=== PATIENT | male | born 1980 | race Caucasian/White ===

== ENCOUNTER 2020-10-18 10:30 | Outpatient (REF) | payer OTHER, SELFPAY ==
[2020-10-18 11:39] LABS: Cholesterol 228 mg/dL; HDL Cholesterol 59 mg/dL; LDL Cholesterol Calculated 146 mg/dl; Triglycerides 117 mg/dL
== END 2020-10-18 10:31 | disposition home or self-care (01) ==
LOC: HO.HMGCLDS 10:30
PROVIDERS: PCP Nurse Practitioner Family; Visit Provider Nurse Practitioner Family
DX: E78.5 Hyperlipidemia, unspecified (principal)
CPT/HCPCS: 36415; 80061

== ENCOUNTER 2020-11-29 14:03 | Outpatient (REF) | payer OTHER, SELFPAY ==
--- NOTE | ~2020-11-29 | US_ITS ---
EXAMINATION: US VENOUS ULTRASOUND WITH DOPPLER LOWER EXTREMITY, RIGHT CLINICAL INFORMATION: Localized edema. COMPARISON: None TECHNIQUE: Ultrasound of the deep veins is performed from the hip to the calf with compression sonography and color and pulse Doppler assessment. Spectral analysis with color-flow imaging is performed. FINDINGS: There is normal venous compression and respiratory variation and augmented flow. The visualized common femoral vein, superficial femoral vein, profunda femoral vein, popliteal vein, and the trifurcation region shows no evidence of deep venous thrombosis. There is no significant popliteal fossa cyst. If the patient's symptoms persist, followup ultrasound in 5 days 7 days might be of value to exclude proximal propagation from a non-visualized calf vein. US/US venous duplex LE RT IMPRESSION: No DVT demonstrated in the right lower extremity.
== END 2020-11-29 14:04 | disposition home or self-care (01) ==
LOC: HO.HMGCX 14:03
PROVIDERS: PCP Nurse Practitioner Family; Visit Provider Hospitalist
DX: R60.0 Localized edema (principal)
CPT/HCPCS: 93971

== ENCOUNTER 2020-12-18 13:05 | Outpatient (REF) | payer OTHER, SELFPAY ==
[2020-12-18 13:55] LABS: MANUAL DIFF FLAG NO
[2020-12-18 14:03] LABS: Basophils Percent Auto 0.1 % (0-2); Eosinophils Absolute Auto 0.1 X10*3/uL (0.0-0.4); Eosinophils Percent Auto 1.7 % (0-4); Hematocrit 47.8 % (42-52); Hemoglobin 16.6 g/dl (14.0-18.0); Imm Gran Abs Auto 0.04 X10*3/uL (0.00-0.03); Imm Gran Pct Auto 0.6 % (0.0-0.4); Lymphocytes Absolute Auto 2.2 X10*3/uL (1.2-4.9); Lymphocytes Percent Auto 31.1 % (20-40); Mean Corpuscular HGB Conc 34.7 g/dl (31.0-36.0); Mean Corpuscular Hemoglobin 31.3 pg (27.0-33.0); Mean Platelet Volume 10.3 fL (9.4-12.4); Monocytes Absolute Auto 0.5 X10*3/uL (0.1-1.2); Monocytes Percent Auto 6.8 % (2-11); Neutrophils Absolute Auto 4.3 X10*3/uL (2.0-8.3); Neutrophils Percent Auto 59.7 % (45-73); Platelet Count 240 X10*3/uL (160-400); Red Blood Count 5.31 X10*6/uL (4.60-5.80); Red Cell Distribution Width 11.9 % (11.0-16.0); White Blood Count 7.2 X10*3/uL (4.8-10.8)
[2020-12-18 14:20] LABS: Anion Gap 14 (12-20); Blood Urea Nitrogen 14 mg/dL (9-16); Calcium 9.7 mg/dL (8.4-10.2); Carbon Dioxide 24 mmol/L (22-29); Chloride 103 mmol/L (96-108); Cholesterol 187 mg/dL; Estimated Glomerular Filt Rate > 60; Glucose Random 91 mg/dL (60-115); HDL Cholesterol 57 mg/dL; LDL Cholesterol Calculated 105 mg/dl; Sodium 137 mmol/L (135-145); Triglycerides 129 mg/dL
== END 2020-12-18 13:06 | disposition home or self-care (01) ==
LOC: HO.HMGCLDS 13:05
PROVIDERS: PCP Nurse Practitioner Family; Visit Provider Nurse Practitioner Family
DX: R10.31 Right lower quadrant pain (principal); E78.5 Hyperlipidemia, unspecified
CPT/HCPCS: 36415; 80048; 80061; 85025

== ENCOUNTER 2021-01-07 07:58 | Outpatient (REF) | payer OTHER, SELFPAY ==
--- NOTE | ~2021-01-07 | CT_ITS ---
EXAMINATION: CT PELVIS WITH CONTRAST CLINICAL INFORMATION: Right lower quadrant pain COMPARISON: Previous CT of the abdomen and pelvis most recent October 2012 TECHNIQUE: Helical scanning was performed with submillimeter collimation through the pelvis with the use of oral contrast and during bolus intravenous injection of 85 mL of Omnipaque 350 intravenous contrast. Sagittal and coronal multiplanar 2-D reconstructions were obtained. This CT examination was performed using dose optimization techniques as appropriate, variously including the following: *Automated exposure control *Adjustment of mA and/or kV according to patient size (this includes techniques or standardized protocols for targeted exams where dose is matched to indication/reason for exam; i.e. extremities or head) *Use of iterative reconstruction technique DLP: 577 mGy-cm FINDINGS: PELVIS: The appendix is normal appearing. Visualized small and large bowel is normal. The bladder is not optimally distended. The prostate gland does not appear enlarged. No ascites or adenopathy is seen. No hernia is seen. Vascular structures are unremarkable. OSSEOUS STRUCTURES: Unremarkable. CT/CT pelvis w con IMPRESSION: Unremarkable exam.
== END 2021-01-07 07:59 | disposition home or self-care (01) ==
LOC: HO.CT 07:58
PROVIDERS: Visit Provider Nurse Practitioner Family
DX: R10.31 Right lower quadrant pain (principal)
CPT/HCPCS: 72193

== ENCOUNTER 2021-04-21 10:15 | Outpatient (REF) | payer OTHER, SELFPAY ==
[2021-04-21 14:31] LABS: COVID-19 Test Negative (Negative)
== END 2021-04-21 10:16 | disposition home or self-care (01) ==
LOC: HO.LAB 10:15
PROVIDERS: Visit Provider Internal Medicine
DX: Z20.822 Contact with and (suspected) exposure to COVID-19 (principal)
CPT/HCPCS: 36415; 87635; C9803

== ENCOUNTER 2021-06-13 13:51 | Outpatient (REF) | payer OTHER, SELFPAY ==
[2021-06-13 14:55] LABS: Influenza A PCR NEGATIVE (Negative); Influenza B PCR NEGATIVE (Negative); Resp Syncy Virus RNA Qual PCR NEGATIVE (Negative); SARS COV2 PCR INHOUSE NEGATIVE (Negative)
== END 2021-06-13 13:52 | disposition home or self-care (01) ==
LOC: HO.LNP 13:51
PROVIDERS: Visit Provider Physician Assistant Medical
DX: Z20.822 Contact with and (suspected) exposure to COVID-19 (principal); J06.9 Acute upper respiratory infection, unspecified
CPT/HCPCS: 0241U

== ENCOUNTER 2021-06-16 11:35 | Outpatient (REF) | payer OTHER, SELFPAY ==
[2021-06-16 12:51] LABS: Influenza A PCR NEGATIVE (Negative); Influenza B PCR NEGATIVE (Negative); Resp Syncy Virus RNA Qual PCR NEGATIVE (Negative); SARS COV2 PCR INHOUSE NEGATIVE (Negative)
== END 2021-06-16 11:36 | disposition home or self-care (01) ==
LOC: HO.LNP 11:35
PROVIDERS: Visit Provider Internal Medicine
DX: R43.9 Unspecified disturbances of smell and taste (principal); Z20.822 Contact with and (suspected) exposure to COVID-19
CPT/HCPCS: 0241U

== ENCOUNTER 2021-08-25 14:48 | Outpatient (REF) | payer OTHER, SELFPAY ==
[2021-08-25 16:31] LABS: MANUAL DIFF FLAG NO
[2021-08-25 16:40] LABS: Appearance Urine CLEAR; Color Urine YELLOW; Glucose Urine UA NEG (NEG); Leukocyte Esterase Urine NEG (NEG); Nitrite Urine NEG (NEG); Specific Gravity - Urine 1.015 (1.005-1.025); Urine Blood NEG (NEG); Urine Ketones NEG (NEG); Urine Protein NEG (NEG-TRACE)
[2021-08-25 16:46] LABS: Basophils Percent Auto 0.3 % (0-2); Eosinophils Absolute Auto 0.3 X10*3/uL (0.0-0.4); Eosinophils Percent Auto 3.8 % (0-4); Hematocrit 47.3 % (42.0-52.0); Hemoglobin 16.1 g/dl (14.0-18.0); Imm Gran Abs Auto 0.03 X10*3/uL (0.00-0.03); Imm Gran Pct Auto 0.4 % (0.0-0.4); Lymphocytes Absolute Auto 2.2 X10*3/uL (1.2-4.9); Mean Corpuscular Hemoglobin 30.6 pg (27.0-33.0); Mean Corpuscular Volume 89.8 fL (80.0-98.0); Mean Platelet Volume 10.2 fL (9.4-12.4); Monocytes Absolute Auto 0.7 X10*3/uL (0.1-1.2); Monocytes Percent Auto 9.5 % (2-11); Neutrophils Absolute Auto 3.9 x10*3/uL (2.0-8.3); Platelet Count 297 X10*3/uL (160-400); Red Blood Count 5.27 X10*6/uL (4.60-5.80); Red Cell Distribution Width 11.8 % (11.0-16.0); White Blood Count 7.1 X10*3/uL (4.8-10.8)
[2021-08-25 16:49] LABS: Alanine Aminotransferase 32 U/L (0-40); Albumin Level 4.7 g/dL (3.5-5.0); Alkaline Phosphatase 66 U/L (39-117); Anion Gap 15 (12-20); Aspartate Amino Transferase 26 U/L (5-37); Bilirubin Total 0.8 mg/dL (0.0-1.0); Blood Urea Nitrogen 12 mg/dL (9-16); Calcium 10.4 mg/dL (8.4-10.2); Carbon Dioxide 29 mmol/L (22-29); Chloride 102 mmol/L (96-108); Estimated Glomerular Filt Rate > 60; Glucose Random 87 mg/dL (60-115); Potassium 4.6 mmol/L (3.3-5.1); Sodium 141 mmol/L (135-145); Total Protein 8.1 g/dL (6.5-8.0)
[2021-08-25 17:09] LABS: TSH reflex Free T4 1.77 uIU/mL (0.32-4.0)
[2021-08-25 17:16] LABS: Syphilis Screen Nonreactive (Nonreactive)
[2021-08-26 04:44] LABS: HIV AB/AG Nonreactive (Nonreactive); HIV Num 1 0.08 S/CO (0.00-0.99)
[2021-08-26 07:22] LABS: CT PCR NOT DETECTED (Not Detect.); NG PCR NOT DETECTED (Not Detect.)
== END 2021-08-25 14:49 | disposition home or self-care (01) ==
LOC: HO.HMGCLDS 14:48
PROVIDERS: PCP Nurse Practitioner Family; Visit Provider Nurse Practitioner Family
DX: R59.1 Generalized enlarged lymph nodes (principal); E83.52 Hypercalcemia
CPT/HCPCS: 80053; 81003; 84443; 85025; 86780; 87389; 87491; 87591

== ENCOUNTER → 2022-05-18 12:07 | Outpatient (BNVA) | payer OTHER, SELFPAY | PROVIDERS: PCP Nurse Practitioner Family; Visit Provider Physician Assistant | DX: R19.8 Other specified symptoms and signs involving the digestive system and abdomen (principal); K58.9 Irritable bowel syndrome, unspecified; K57.30 Diverticulosis of large intestine without perforation or abscess without bleeding; Z80.0 Family history of malignant neoplasm of digestive organs; Z12.11 Encounter for screening for malignant neoplasm of colon; Z86.010 Personal history of colon polyps | CPT/HCPCS: 99212 ==

== ENCOUNTER 2022-05-25 08:16 | Outpatient (REF) | payer OTHER, SELFPAY ==
[2022-05-25 11:37] LABS: MANUAL DIFF FLAG NO
[2022-05-25 11:59] LABS: Basophils Percent Auto 0.3 % (0-2); Eosinophils Absolute Auto 0.2 X10*3/uL (0.0-0.4); Eosinophils Percent Auto 3.7 % (0-4); Hemoglobin 15.6 g/dl (14.0-18.0); Imm Gran Abs Auto 0.03 X10*3/uL (0.00-0.03); Imm Gran Pct Auto 0.5 % (0.0-0.4); Lymphocytes Absolute Auto 1.8 X10*3/uL (1.2-4.9); Lymphocytes Percent Auto 28.9 % (20-40); Mean Corpuscular HGB Conc 34.7 g/dl (31.0-36.0); Mean Corpuscular Hemoglobin 31.1 pg (27.0-33.0); Mean Corpuscular Volume 89.8 fL (80.0-98.0); Mean Platelet Volume 10.6 fL (9.4-12.4); Monocytes Absolute Auto 0.5 X10*3/uL (0.1-1.2); Monocytes Percent Auto 8.7 % (2-11); Neutrophils Absolute Auto 3.6 x10*3/uL (2.0-8.3); Neutrophils Percent Auto 57.9 % (45-73); Platelet Count 264 X10*3/uL (160-400); Red Blood Count 5.01 X10*6/uL (4.60-5.80); Red Cell Distribution Width 11.8 % (11.0-16.0); White Blood Count 6.2 X10*3/uL (4.8-10.8)
[2022-05-25 12:16] LABS: Alanine Aminotransferase 29 U/L (0-40); Albumin Level 4.7 g/dL (3.5-5.0); Alkaline Phosphatase 72 U/L (39-117); Anion Gap 14 (12-20); Aspartate Amino Transferase 23 U/L (5-37); Bilirubin Total 0.9 mg/dL (0.0-1.0); Blood Urea Nitrogen 17 mg/dL (9-16); C Reactive Protein 0.07 mg/dL (< or = 0.50); Calcium 9.7 mg/dL (8.4-10.2); Carbon Dioxide 26 mmol/L (22-29); Chloride 105 mmol/L (96-108); Estimated Glomerular Filt Rate > 60; Glucose Random 100 mg/dL (60-115); Potassium 3.9 mmol/L (3.3-5.1); Sodium 141 mmol/L (135-145); Total Protein 7.5 g/dL (6.5-8.0)
[2022-05-25 12:29] LABS: Erythrocyte Sedimentation Rate 1 MM/HR (0-15)
== END 2022-05-25 08:17 | disposition home or self-care (01) ==
LOC: HO.HMGCLDS 08:16
PROVIDERS: PCP Nurse Practitioner Family; Visit Provider Physician Assistant
DX: R19.8 Other specified symptoms and signs involving the digestive system and abdomen (principal); K58.9 Irritable bowel syndrome, unspecified; Z80.0 Family history of malignant neoplasm of digestive organs; Z86.010 Personal history of colon polyps
CPT/HCPCS: 36415; 80053; 82378; 85025; 85652; 86140

== ENCOUNTER 2022-06-04 08:35 | Day surgery (SDC) | payer OTHER, SELFPAY ==
--- NOTE | 2022-06-02 15:00 | HO.ANESPROP2 ---
Documented by User: Esme Edmonds NP 06/02/22 15:03 HPI - Anesthesia Eval Consult details Narrative: 42yo M for Colonoscopy [facility] Active Problems Active Problems: All Active Problems (Updated 05/29/22 @ 09:43 by Karen Bran, ADONIS) Rectal fissure (Acute) Skin mole (Acute) Thigh edema (Acute) Deep inguinal pain, right (Acute) Ingrown toenail (Acute) URI (upper respiratory infection) (Acute) Lymphadenopathy (Acute) Hypercalcemia (Acute) Return to work evaluation (Acute) History of colon polyps (Acute) Rectal pressure (Acute) Family history of colon cancer (Acute) Dyslipidemia (Acute) Past Medical History Medical History Dyslipidemia GERD (gastroesophageal reflux disease) History of narcotic addiction Right carpal tunnel syndrome Family History Family History Mother Colon cancer Surgical History Surgical History History of esophagogastroduodenoscopy (EGD) Hx of colonoscopy Social History Social History Patient Tobacco Use Status: Former Tobacco user Second Hand Smoke Exposure: No Advance Directives: No Advance Directives Information Provided: Yes Current occupational status: employed Meds Allergies Allergy/AdvReac Type Severity Reaction Status Date / Time No Known Allergies Allergy Verified 05/29/22 09:44 [No Known Allergies*] Exam Exam Date and Time: June 02, 2022 1500 Pertinent Lab Results Pertinent Lab Results: Laboratory Tests 05/25/22 05/25/22 08:19 08:19 WBC 6.2 Hgb 15.6 Hct 45.0 Plt Count 264 Sodium 141 Potassium 3.9 Chloride 105 Carbon Dioxide 26 BUN 17 H Creatinine 0.91 Assessment and Plan Assessment Anesthesia Assessment: Chart Reviewed Documented by User: Kristen Vo MD 06/04/22 09:25 PMF Past Medical History Medical History Dyslipidemia GERD (gastroesophageal reflux disease) History of narcotic addiction Right carpal tunnel syndrome Family History Family History Mother Colon cancer Surgical History Surgical History History of esophagogastroduodenoscopy (EGD) Hx of colonoscopy History of Problems with Anesthesia: No Social History Social History Patient Tobacco Use Status: Former Tobacco user Second Hand Smoke Exposure: No Advance Directives: No Advance Directives Information Provided: Yes Current occupational status: employed Meds Allergies Allergy/AdvReac Type Severity Reaction Status Date / Time No Known Allergies Allergy Verified 05/29/22 09:44 [No Known Allergies*] Exam Airway Mallampati Class: II TM Dist: >3cm Neck ROM: Full Loose/Missing/Broken Teeth: No Heart: RRR Lungs: CTA Assessment and Plan Assessment Anesthesia Assessment: Anesthesia Plan Discussed Final Anesthetic Review History of Problems with Anesthesia: No NPO: Yes ASA Class: II Final Preanesthetic Review: Meds/Allgs Chart Reviewed, Consent Obtained/Reviewed and Anes Risks/Benef Reviewed Patient Risk: Low Procedure Risk: Low Anesthetic Plan Anesthetic Plan: MAC: Disposition: Standard PACU
[2022-06-04 09:09] VITALS: BMI 26.6
[2022-06-04 09:22] VITALS: BP 131/94; PULSE 92; RESP 16; TEMP 36.6; O2SAT 98
--- NOTE | 2022-06-04 09:23 | MHC.SHP ---
Pre-Procedural Eval Section A Date of Service: 06/04/22 The History & Physical has been completed within 30 days and I have reviewed it.: Yes Section B Chief Complaint: Rectal pressure, change in stool caliber Allergies: Allergies Allergy/AdvReac Type Severity Reaction Status Date / Time No Known Allergies Allergy Verified 05/29/22 09:44 [No Known Allergies*] Plan Diagnosis/Plan: Unchanged I have reviewed the history and physical and performed a pertinent physical examination on my patient. No changes have occurred unless specified.
[2022-06-04 09:35] LABS: Amphetamine Screen Urine Not Detected (Not Detect); Barbiturates, Urine Not Detected (Not Detect); Benzodiazepines Screen Urine Not Detected (Not Detect); Cannabinoid Screen Urine Not Detected (Not Detect); Cocaine Screen Urine Not Detected (Not Detect); Fentanyl, urine Not Detected (Not Detect); Opiate Screen Urine Not Detected (Not Detect); Phencyclidine Screen Urine Not Detected (Not Detect)
[2022-06-04] MEDS: Lactated Ringers 1,000 ML 100 ML IVCONT (09:35)
--- NOTE | 2022-06-04 09:35 | P.OP_ITS ---
Operative Note Operative Note Date of Service: 06/04/22 Narrative: Procedure: Colonoscopy Indication: Change in stool caliber; family history of colon cancer Endoscopist: Fidelia Dickey MD Anesthesia Provider: Dr Kristen Vo Anesthesia type: MAC Instrument: Olympus [id number]-H190L Consent: Indication, risks vs benefits, and alternatives were discussed with the patient who gave written informed consent to proceed. EKG, pulse, pulse oximetry and blood pressure were monitored throughout the procedure. Please see anesthesia flowsheet. Procedure: The patient was brought to the procedure room and placed in the left lateral decubitus position. IV medications were administered by the anesthesia provider in attendance. A digital rectal exam was performed which was normal. The colonoscope was then inserted through the anus and advanced through the colon to the cecum at 75 cm,and terminal ileum. Mucosa was carefully examined under high definition white light as the instrument was slowly withdrawn in a retrograde panoramic fashion. Retroflexion was performed in ascending colon and rectum. The procedure was not difficult. There were no immediate obvious complications. The quality of the prep was BBPS: 2+3+3 = adequate Withdrawal time 13 minutes. Limitations: No limitations. Findings: Mucosa: Normal to cecum and terminal ileum. Previous tattoo noted in ascending colon. No polyp noted around that area on x3 relook. Protruding lesions: * 1 sessile polyp of size 4 mm in sigmoid colon. Cold snare polypectomy was performed. The polyp was completely removed and retrieved. * Large internal hemorrhoids without stigmata of recent bleeding. Impression: 1. Normal colon and terminal ileum mucosa 2. Previous tattoo in ascending colon 3. Total of 1 polyps removed from sigmoid colon. 4. Internal hemorrhoids Recommendations: - Follow path results. - Repeat colonoscopy in 5 years regardless of path given family history of CRC in first degree relative at 60y.o. - Increase fiber intake. - Sitz bath - Combination lidocaine/hydrocort x 7-10 days for symptomatic management of internal hemorrhoids
[2022-06-04 10:04] VITALS: BP 112/68; PULSE 77; RESP 20; TEMP 36.3; O2SAT 98
[2022-06-04 10:19] VITALS: BP 112/77; PULSE 79; RESP 16; TEMP 36.3; O2SAT 98
== END 2022-06-04 11:09 ==
PROVIDERS: Nurse Practitioner; PCP Nurse Practitioner Family; Visit Provider Internal Medicine
PROC: 0DJD8ZZ Inspection of Lower Intestinal Tract, Via Natural or Artificial Opening Endoscopic (ICD-10-PCS; CPT 45378; principal; 2022-06-04 09:40)
DX: R19.8 Other specified symptoms and signs involving the digestive system and abdomen (principal); R19.4 Change in bowel habit; Z86.010 Personal history of colon polyps; Z80.0 Family history of malignant neoplasm of digestive organs; K63.5 Polyp of colon; K64.8 Other hemorrhoids; E78.5 Hyperlipidemia, unspecified; Z87.891 Personal history of nicotine dependence
CPT/HCPCS: 45385; 80307; 88305

== ENCOUNTER 2023-02-13 00:04 | Emergency (ER) | payer OTHER, SELFPAY ==
--- NOTE | 2023-02-13 | ECG_ITS ---
Test Reason : HEADACHE Blood Pressure : / mmHG Vent. Rate : 077 BPM Atrial Rate : 077 BPM P-R Int : 138 ms QRS Dur : 106 ms QT Int : 368 ms P-R-T Axes : 040 032 048 degrees QTc Int : 416 ms Normal sinus rhythm Normal ECG When compared with ECG of 05-FEB-2012 19:57, No significant change was found Referred By: Generic ED Physician Electronically Signed By:Milo Xiao
--- NOTE | ~2023-02-13 | XR_ITS ---
EXAMINATION: XR CHEST CLINICAL INFORMATION: Chest discomfort, altered mental status COMPARISON: None available. TECHNIQUE: Frontal view of the chest was obtained. FINDINGS: The lungs are clear with no focal consolidation. No evidence of pneumothorax, pulmonary edema, or pleural effusions. The cardiomediastinal silhouette is unremarkable. No acute osseous findings. XR/XR chest 1V IMPRESSION: No acute cardiopulmonary findings.
--- NOTE | ~2023-02-13 | CT_ITS ---
EXAMINATION: CT HEAD WITHOUT CONTRAST CLINICAL INFORMATION: New onset left temporal headache COMPARISON: None available. TECHNIQUE: Contiguous axial imaging was performed from the skull base to vertex without intravenous administration of contrast. This CT examination was performed using dose optimization techniques as appropriate, variously including the following: *Automated exposure control *Adjustment of mA and/or kV according to patient size (this includes techniques or standardized protocols for targeted exams where dose is matched to indication/reason for exam; i.e. extremities or head) *Use of iterative reconstruction technique DLP: 645 mGy-cm FINDINGS: There is no evidence of acute intracranial hemorrhage or territorial infarction. No abnormal mass-effect or midline shift is seen. Paige to white matter differentiation is well preserved. No extra-axial fluid collections are identified. The ventricles are normal in size. There is no abnormal attenuation within the brain parenchyma. The osseous structures and soft tissues are normal. Partially opacified left ethmoid air cells. The mastoid air cells are well-aerated. CT/CT head/brain wo IV con IMPRESSION: No acute intracranial pathology.
[2023-02-13 00:10] VITALS: BP 130/94; PULSE 88; RESP 16; TEMP 36.3; O2SAT 100; BMI 26.6
[2023-02-13 00:45] LABS: MANUAL DIFF FLAG NO
--- NOTE | 2023-02-13 00:45 | MHC.EDTECH ---
PATIENT EKG TAKEN AND WAS READ BY PROVIDER ,BLOOD DRAWN ,URINE SAMPLE COLLECTED AND SENT TO LAB .
[2023-02-13 00:47] LABS: Basophils Percent Auto 0.2 % (0-2); Eosinophils Absolute Auto 0.3 X10*3/uL (0.0-0.4); Eosinophils Percent Auto 3.2 % (0-4); Hematocrit 44.2 % (42.0-52.0); Hemoglobin 15.5 g/dl (14.0-18.0); Imm Gran Abs Auto 0.03 X10*3/uL (0.00-0.03); Imm Gran Pct Auto 0.3 % (0.0-0.4); Lymphocytes Absolute Auto 3.3 X10*3/uL (1.2-4.9); Lymphocytes Percent Auto 37.3 % (20-40); Mean Corpuscular HGB Conc 35.1 g/dl (31.0-36.0); Mean Corpuscular Volume 88.4 fL (80.0-98.0); Mean Platelet Volume 9.4 fL (9.4-12.4); Monocytes Absolute Auto 0.8 X10*3/uL (0.1-1.2); Monocytes Percent Auto 8.7 % (2-11); Neutrophils Absolute Auto 4.5 x10*3/uL (2.0-8.3); Neutrophils Percent Auto 50.3 % (45-73); Platelet Count 260 X10*3/uL (160-400); Red Cell Distribution Width 11.9 % (11.0-16.0)
[2023-02-13 00:48] LABS: Appearance Urine Clear; Color Urine Yellow; Glucose Urine UA Negative (Negative); Leukocyte Esterase Urine Negative (Negative); Nitrite Urine Negative (Negative); PH 5.5 (5.0-9.0); Specific Gravity - Urine >= 1.030 (1.005-1.025); Urine Blood Negative (Negative); Urine Ketones Trace mg/dL (Negative); Urine Protein Negative (Neg-Trace)
[2023-02-13 01:00] LABS: Partial Thromboplastin Time 31.3 SEC (26.0-36.4)
[2023-02-13 01:02] LABS: Anion Gap 16 (12-20); Blood Urea Nitrogen 19 mg/dL (9-16); Carbon Dioxide 23 mmol/L (22-29); Chloride 102 mmol/L (96-108); Creatinine Clr Calc Pharmacy 83.3; Estimated Glomerular Filt Rate > 60; Glucose Random 90 mg/dL (60-115); Potassium 3.5 mmol/L (3.3-5.1); Sodium 137 mmol/L (135-145)
[2023-02-13 01:10] LABS: Troponin-I High Sensitivity < 2.7 ng/L (<3.5-35.0)
[2023-02-13 02:54] VITALS: BP 131/92; PULSE 65; RESP 12; TEMP 36.7; O2SAT 99
--- NOTE | 2023-02-13 03:06 | PC.NURSE ---
Pt aox4 resting at the bedside in no apparent distress. Reports headache, 4/10, x 4-5 days with difficulty speaking out words for the past week with some dizziness at time. Speech is clear and coherent. No facial droop noted. Pending physician eval.
--- NOTE | 2023-02-13 03:09 | ED.GENADULT ---
HPI - General Adult General Chief complaint: General Medical Stated complaint: headache Time Seen by Provider: 02/13/23 03:07 Source: patient Mode of arrival: ambulatory Limitations: no limitations History of Present Illness HPI narrative: patient with no significant past medical history been having headache on the left side with fogginess feeling fumbling his words earlier today no nausea no vomiting no fever no recent head injury no family history of brain cancer or tumor Related Data Previous Rx's Medication Instructions Recorded amoxicillin 875 mg-potassium 1 tab PO BID 7 days #14 tabs 01/12/23 clavulanate 125 mg tablet dnktybgpdo-muananhfynsix-zulebflv 1 cap PO Q6H PRN headache #20 caps 02/13/23 50 mg-300 mg-40 mg capsule (Fioricet) Allergies Allergy/AdvReac Type Severity Reaction Status Date / Time No Known Allergies Allergy Verified 02/13/23 00:14 [No Known Allergies*] Review of Systems Review of Systems: Yes all other systems are reviewed and are negative PMFSH Past Medical History Medical History Dyslipidemia GERD (gastroesophageal reflux disease) History of narcotic addiction Internal hemorrhoids Right carpal tunnel syndrome Surgical History History of esophagogastroduodenoscopy (EGD) Hx of colonoscopy Family History Family History Mother Colon cancer Social History Social History Patient Tobacco Use Status: Former Tobacco user Smoked in Last 30 Days: No Second Hand Smoke Exposure: No Use of substances other than those prescribed or required for medical reasons: No Advance Directives: No Advance Directives Information Provided: Yes Current occupational status: employed Physical Exam ED Vital Signs: Vital Signs - 24 hr 02/13/23 00:10 02/13/23 02:54 02/13/23 05:43 Temperature 97.4 F 98.0 F 98.5 F Pulse Rate 88 65 72 Respiratory Rate 16 12 17 Blood Pressure 130/94 H 131/92 H 116/81 Pulse Oximetry 100 99 100 Oxygen Delivery Method Room Air Room Air Room Air BMI result Body Mass Index 26.6 Appearance: Alert. Oriented X3. No acute distress. Eyes: PERRLA, No Nystagmus ENT: Pharynx normal. Oral Mucosa moist no temporal artery tenderness Neck: Normal inspection. Neck supple. CVS: Normal heart rate and rhythm. Pulses normal. Respiratory: No respiratory distress. Equal air entry bilateral, no wheezing/rales/rhonchi Abdomen: Soft and nontender. Bowel sounds are present, no mass palpable, no CVA tenderness Skin: Skin warm and dry. Normal skin color. Normal skin turgor. Extremities: No lower extremity edema. No calf tenderness Neuro: Oriented X 3. No motor deficit. No sensory deficit.No cerebellar signs , cranial nerves II-XII intact NIH Stroke Scale Internal: Initial- Upon Arrival Level of Consciousness: Alert Level of Consciousness Questions: Answers both questions correctly Level of Consciousness Commands: Performs both tasks correctly Best Gaze: Normal Visual: No visual loss Facial Palsy: Normal Motor Arm (Right): No drift Motor Arm (Left): No drift Motor Leg (Right): No drift Motor Leg (Left): No drift Limb Ataxia: Absent Sensory: Normal Best Language: No aphasia Dysarthia: Normal Extinction and Inattention: No abnormality Score: 0 Medications Administered Discontinued Medications Generic Name Dose Route Start Last Admin Trade Name Freq PRN Reason Stop Dose Admin Acetaminophen/Butalbital/Caffeine 1 tab 02/13/23 03:40 02/13/23 03:50 Butalb/Acetamin/Caff 50/325/40 Tablet PO 02/13/23 03:41 1 tab ONCE ONE Administration Medical Decision Making Medical Decision Making [facility] Narrative: Patient labs are stable CT scan of the head negative for acute patient felt much better after Fioricet likely patient has a complex migraine headache discharge patient home on Fioricet Lab Data [facility] Lab Attestation statement: I reviewed the patient's lab results. 02/13/23 00:41 02/13/23 00:40 Labs: Lab Results 02/13/23 02/13/23 02/13/23 Range/Units 00:40 00:40 00:41 WBC 9.0 (4.8-10.8) X10*3/uL RBC 5.00 (4.60-5.80) X10*6/uL Hgb 15.5 (14.0-18.0) g/dl Hct 44.2 (42.0-52.0) % MCV 88.4 (80.0-98.0) fL MCH 31.0 (27.0-33.0) pg MCHC 35.1 (31.0-36.0) g/dl RDW 11.9 (11.0-16.0) % Plt Count 260 (160-400) X10*3/uL MPV 9.4 (9.4-12.4) fL Immature Gran % (Auto) 0.3 (0.0-0.4) % Neut % (Auto) 50.3 (45-73) % Lymph % (Auto) 37.3 (20-40) % Arthur % (Auto) 8.7 (2-11) % Eos % (Auto) 3.2 (0-4) % Baso % (Auto) 0.2 (0-2) % Lymph # (Auto) 3.3 (1.2-4.9) X10*3/uL Arthur # (Auto) 0.8 (0.1-1.2) X10*3/uL Eos # (Auto) 0.3 (0.0-0.4) X10*3/uL Baso # (Auto) 0.0 (0.0-0.2) X10*3/uL Abs Immat Gran (auto) 0.03 (0.00-0.03) X10*3/uL Absolute Neuts (auto) 4.5 (2.0-8.3) x10*3/uL Absolute Nucleated RBC 0.000 (0.0-0.012) X10*3/uL Nucleated RBC % (auto) 0.0 (0.0-0.2) /100WBC APTT (26.0-36.4) SEC Sodium 137 (135-145) mmol/L Potassium 3.5 (3.3-5.1) mmol/L Chloride 102 (96-108) mmol/L Carbon Dioxide 23 (22-29) mmol/L Anion Gap 16 (12-20) BUN 19 H (9-16) mg/dL Creatinine 1.08 (0.5-1.4) mg/dL Estim Creat Clear Calc 83.3 Estimated GFR > 60 Random Glucose 90 (60-115) mg/dL Calcium 10.0 (8.4-10.2) mg/dL Troponin I High Sens (<3.5-35.0) ng/L Urine Color Yellow Urine Appearance Clear Urine pH 5.5 (5.0-9.0) Ur Specific [place] >= 1.030 H (1.005-1.025) Urine Protein Negative (Neg-Trace) mg/dL Urine Glucose (UA) Negative (Negative) mg/dL Urine Ketones Trace (Negative) mg/dL Urine Blood Negative (Negative) Urine Nitrite Negative (Negative) Ur Leukocyte Esterase Negative (Negative) 02/13/23 02/13/23 Range/Units 00:41 00:41 WBC (4.8-10.8) X10*3/uL RBC (4.60-5.80) X10*6/uL Hgb (14.0-18.0) g/dl Hct (42.0-52.0) % MCV (80.0-98.0) fL MCH (27.0-33.0) pg MCHC (31.0-36.0) g/dl RDW (11.0-16.0) % Plt Count (160-400) X10*3/uL MPV (9.4-12.4) fL Immature Gran % (Auto) (0.0-0.4) % Neut % (Auto) (45-73) % Lymph % (Auto) (20-40) % Arthur % (Auto) (2-11) % Eos % (Auto) (0-4) % Baso % (Auto) (0-2) % Lymph # (Auto) (1.2-4.9) X10*3/uL Arthur # (Auto) (0.1-1.2) X10*3/uL Eos # (Auto) (0.0-0.4) X10*3/uL Baso # (Auto) (0.0-0.2) X10*3/uL Abs Immat Gran (auto) (0.00-0.03) X10*3/uL Absolute Neuts (auto) (2.0-8.3) x10*3/uL Absolute Nucleated RBC (0.0-0.012) X10*3/uL Nucleated RBC % (auto) (0.0-0.2) /100WBC APTT 31.3 (26.0-36.4) SEC Sodium (135-145) mmol/L Potassium (3.3-5.1) mmol/L Chloride (96-108) mmol/L Carbon Dioxide (22-29) mmol/L Anion Gap (12-20) BUN (9-16) mg/dL Creatinine (0.5-1.4) mg/dL Estim Creat Clear Calc Estimated GFR Random Glucose (60-115) mg/dL Calcium (8.4-10.2) mg/dL Troponin I High Sens < 2.7 (<3.5-35.0) ng/L Urine Color Urine Appearance Urine pH (5.0-9.0) Ur Specific [place] (1.005-1.025) Urine Protein (Neg-Trace) mg/dL Urine Glucose (UA) (Negative) mg/dL Urine Ketones (Negative) mg/dL Urine Blood (Negative) Urine Nitrite (Negative) Ur Leukocyte Esterase (Negative) Discharge Plan Discharge Clinical Impression: Headache Patient Disposition: Home, Self-Care Instructions: Acute Headache (ED) Additional Instructions: cause of her headache is not very clear possible complex migraine CT scan of the head is negative take Fioricet 1 tablet every 6 hours as needed for headache and follow-up with your PCP Prescriptions: New cplroszcqh-kczjrzxrxaeio-eeas [Fioricet] 50-300-40 mg capsule 1 cap PO Q6H PRN (Reason: headache) Qty: 20 0RF No Action amoxicillin-pot clavulanate 875-125 mg tablet 1 tab PO BID 7 Days Qty: 14 0RF Interventions: ED Discharge Assessment Last Done: 02/13/23 06:04 Discharge Date/Time: 02/13/23 06:05
[2023-02-13] MEDS: Butalb/Acetamin/Caff 50/325/40 TABLET 1 TAB PO (03:50)
[2023-02-13 05:43] VITALS: BP 116/81; PULSE 72; RESP 17; TEMP 36.9; O2SAT 100
== END 2023-02-13 06:05 | disposition home or self-care (01) ==
PROVIDERS: Emergency Provider Internal Medicine; PCP Nurse Practitioner Family
DX: R51.9 Headache, unspecified (principal)
CPT/HCPCS: 36415; 70450; 71045; 80048; 81003; 84484; 85025; 85730; 93005; 99285

== ENCOUNTER → 2023-02-13 00:30 | Outpatient (BNV) | payer OTHER, SELFPAY | PROVIDERS: Emergency Provider Internal Medicine; PCP Nurse Practitioner Family; Visit Provider Internal Medicine Cardiovascular Disease | DX: R51.9 Headache, unspecified (principal) | CPT/HCPCS: 93010 ==

== ENCOUNTER 2023-02-24 14:19 | Outpatient (AMB) | payer OTHER, SELFPAY ==
[2023-02-24 14:22] VITALS: BP 110/76; PULSE 64; TEMP 36.7; O2SAT 96
--- NOTE | 2023-02-24 14:22 | MHC.OFFWIV ---
Intake Vital Signs 02/24/23 14:22 Height 5 ft 7 in BP 110/76 Blood Pressure Location Lt brachial Position Sitting Pulse 64 Pulse Source Pulse Oximeter Temp 98.1 F Temp Source Oral Pulse Oximetry (%) 96 Oxygen Delivery Method Room Air Intake Visit Reasons: EP eczema? (marichuy) Intake Note: Pt is here today for eczema. Patient Tobacco Use Status: Former Tobacco user Allergies No Known Allergies [No Known Allergies*] Allergy (Verified 02/24/23 15:08) Medication List - Last Reconciled 02/24/23 by Natan Naranjo MD betamethasone dipropionate 0.05% 1 appl topical DAILY PRN 14 days eokgtxwlro-vyggaiiqgymkb-eahn 50-300-40 mg (Fioricet) 1 cap PO Q6H PRN Do you need a note to return to daycare/school/sports/work: No HPI EP eczema? (marichuy) HPI Details 43-year-old male presents to the office for a sick visit. Patient has a rash on both his hands, around the 2nd and 3rd fingers. He has history of eczema as a child. As he has not seen his primary care provider in more than a year, his prescription has run out. He would like a refill on the prescription he was getting. [facility] Medical History Dyslipidemia GERD (gastroesophageal reflux disease) History of narcotic addiction Internal hemorrhoids Right carpal tunnel syndrome Surgical History History of esophagogastroduodenoscopy (EGD) Hx of colonoscopy Family History Mother Colon cancer Social History Patient Tobacco Use Status: Former Tobacco user Second Hand Smoke Exposure: No Current occupational status: employed Physical Exam Vital Signs: Last Vital Signs Temp 98.1 F 02/24/23 14:22 Pulse 64 02/24/23 14:22 BP 110/76 02/24/23 14:22 Pulse Ox 96 02/24/23 14:22 Oxygen Delivery Method Room Air 02/24/23 14:22 Skin Other: Right and left hands: Webspace: Thickened erythematous scaly skin. No vesicles or pustules. Assessment & Plan Assessment & Plan (1) Eczema: Code(s): L30.9 - Dermatitis, unspecified Plan: Prescription called in. If symptoms do not improve to follow-up here. Medications: Refilled betamethasone dipropionate 0.05% 1 appl topical DAILY PRN 45 grams 1RF skin irritation 14 days Coding Level of Care Code Est Pt Level 3 (22096) Diagnoses Eczema L30.9
== END 2023-02-24 15:34 | disposition home or self-care (01) ==
PROVIDERS: PCP Nurse Practitioner Family; Visit Provider Internal Medicine
DX: L30.9 Dermatitis, unspecified (principal)
CPT/HCPCS: 99213

== ENCOUNTER 2023-06-02 08:57 | Outpatient (AMB) | payer OTHER, SELFPAY ==
--- NOTE | 2023-06-02 09:01 | A.OFFPC_ITS ---
Vital Signs 06/02/23 09:04 Weight 168 lb BP 120/82 Blood Pressure Location Rt brachial Position Sitting Pulse 89 Pulse Source Pulse Oximeter Pulse Oximetry (%) 98 Oxygen Delivery Method Room Air Intake Visit Reasons: Annual PE Allergies No Known Allergies [No Known Allergies*] Allergy (Verified 06/02/23 09:05) Medication List - Last Reconciled 06/02/23 by MISBAH Stevenson betamethasone dipropionate 0.05% 1 appl topical DAILY PRN Tobacco use date assessed: 06/02/23 Dental Screening Dental Screen Date: 06/02/23 Did you have a dental visit in the last 12 months?: Yes Did you have a dental problem in the last 6 months where you did not have access to dental care?: No Was dental information given to patient?: Patient has dentist HPI Annual PE HPI Details Pt is here for a PE. Will order labs. Pt reports difficulty with word finding. He was seen in the ER for this and testing including labs and CT were unremarkable, see notes. Pt reports being under a lot of stress and believes this could be contributing to his symptoms. Will order heavy metals screen and will cont to monitor. Pt c/o right shoulder pain. He reports noticing this in February with throwing (pointing to posterior right shoulder) . Will order XR and refer to PT. [facility] Medical History Dyslipidemia GERD (gastroesophageal reflux disease) History of narcotic addiction Internal hemorrhoids Right carpal tunnel syndrome Surgical History Hx of colonoscopy History of esophagogastroduodenoscopy (EGD) Family History Mother Colon cancer Social History Housing: Condominium Patient Tobacco Use Status: Former Tobacco user Second Hand Smoke Exposure: No Current occupational status: employed Cognitive needs: No Hearing needs: No Vision needs: Yes Questionnaire PHQ-9 Over the last 2 weeks, how often have you been bothered by any of the following problems? 1. Little interest or pleasure in doing things: not at all 2. Feeling down, depressed, or hopeless: not at all 3. Trouble falling or staying asleep, or sleeping too much: several days 4. Feeling tired or having little energy: several days 5. Poor appetite or overeating: not at all 6. Feeling bad about yourself - or that you are a failure or have let yourself or your family down: not at all 7. Trouble concentrating on things, such as reading the newspaper or watching television: not at all 8. Moving or speaking so slowly that other people could have noticed. Or the opposite - being so fidgety or restless that you have been moving around a lot more than usual: not at all 9. Thoughts that you would be better off or of hurting yourself in some way: not at all Total score: 2 Source: Developed by Drs. Johan Nowak, Kayla Martines, Giovany Simmons and colleagues, with an educational derrek from [employer]. Thrive Questionnaire Date Thrive assessed: 08/25/21 AUDIT C Alcohol Use Questionnaire (AUDIT-C) 1. How often do you have a drink containing alcohol?: Monthly or less 2. How many drinks containing alcohol do you have on a typical day when you are drinking?: 1 or 2 3. How often do you have six or more drinks on one occasion?: Never Total Score: 1 Score Reviewed/Action Taken: No GIACOMO-7 AMB Questionnaire GIACOMO-7 Date GIACOMO - 7 assessed: 06/02/23 Feeling nervous, anxious, or on edge: 0 = Not at all Not being able to stop or control worryin = Not at all Worrying too much about different things: 0 = Not at all Trouble relaxin = Not at all Being so restless that it is hard to sit still: 0 = Not at all Becoming easily annoyed or irritable: 0 = Not at all Feeling afraid as if something awful might happen: 0 = Not at all Total GIACOMO-7 score (0-4 normal; 5-9 mild; 10-14 moderate; 15-21 severe): 0 Source: Developed by Drs. Johan Nowak, Kayla Martines, Giovany Simmons and colleagues, with an educational derrek from [employer]. Review of Systems Const Denies chills and Denies fever(s) Eyes Denies blurry vision ENT Denies vertigo, Denies dizziness and Denies sore throat Card Denies chest pain at rest, Denies chest pain with activity, Denies diaphoresis, Denies dyspnea and Denies dyspnea on exertion Resp Denies cough, Denies dyspnea, Denies dyspnea on exertion and Denies wheezing GI Denies abdominal pain, Denies melena, Denies hematochezia, Denies constipation, Denies diarrhea and Denies loose stools Denies hematuria Musc Denies numbness and Denies tingling Skin/Breast Denies lesions Neuro Denies vertigo, Denies dizziness, Denies numbness and Denies tingling Psych Denies anxiety, Denies depression, Denies homicidal ideation, Denies suicidal ideation and Denies other (substance abuse) Aller/Immun Denies wheezing Physical exam (Primary Care) Vital Signs: Last Vital Signs Pulse 89 06/02/23 09:04 BP 120/82 06/02/23 09:04 Pulse Ox 98 06/02/23 09:04 Oxygen Delivery Method Room Air 06/02/23 09:04 Tobacco/Smoking Status: Tobacco use Status Tobacco use date assessed 06/02/23 06/02/23 09:07 Patient Tobacco Use Status Former Tobacco user 06/02/23 09:03 PHQ-9: PHQ-9 Score PHQ-9: Total score 2 06/02/23 11:08 Thrive Assessment: Date of Thrive Assessment Date Thrive assessed 08/25/21 06/02/23 09:03 Const General: cooperative Nutritional Appearance: well nourished Orientation/consciousness: patient oriented x3 HENMT Head: Yes normal to inspection, Yes normocephalic and Yes atraumatic Ears: TM's normal bilaterally Eyes General: appearance normal, both eyes and all related structures Alignment and Position: alignment normal and position normal Neck Neck: Yes normal visual inspection and Yes no lymphadenopathy Thyroid: Thyroid normal Resp Effort & Inspection: normal respiratory effort Auscultation: clear to auscultation bilaterally Cardio Rate: regular rate Rhythm: regular rhythm Heart sounds: S1 normal heart sound present, S2 normal heart sound present and no murmurs GI Palpation (GI): Soft to palpation and nontender Auscultation: normal bowel sounds Male General Exam: Yes normal external exam Penis: normal penis Scrotum: scrotum normal, testes descended bilaterally and no inguinal hernias Testes: no testicular mass Skin Rashes: no rashes Neuro General: patient oriented x3, moves all extremities, no focal motor deficits and deep tendon reflexes 2+ bilaterally Romberg Test: Negative Extrem Other: right shoulder: + neers, + jobes, crepitus noted Psych Appearance: grossly normal Mental Status: mental status grossly normal Speech and movement: Normal speech and movement present Affect: normal affect Attitude: cooperative Thought process: Normal thought process present Thought content: Normal thought content present Insight: Good insight present (Psych) Judgement: Good judgement present (Psych) Assessment and Plan Assessment & Plan (1) Physical exam: Code(s): Z00.00 - Encounter for general adult medical examination without abnormal findings Plan: Labs ordered (2) Word finding problem: Code(s): R47.89 - Other speech disturbances Plan: Heavy metals screen ordered (3) Shoulder pain: Code(s): M25.519 - Pain in unspecified shoulder Plan: XR ordered, referred to PT Plan The patient agreed to the use of a certified ophthalmic medical technician for this encounter. Scribed for SAMREEN Martinez-BC by Arlette Tomas certified ophthalmic medical technician, on 06/02/2023 at 09:20 EST. Orders: Orders Complete Blood Count Auto Diff Today Z00.00 - Encounter for general adult medical examination without abnormal findings TSH reflex Free T4 Today Z00.00 - Encounter for general adult medical examinatio n without abnormal findings Lipid Panel Today Z00.00 - Encounter for general adult medical examination without abnormal findings XR shoulder RT min 2V Today M25.519 - Pain in unspecified shoulder PT Evaluation and Treatment Today M25.519 - Pain in unspecified shoulder Comprehensive [place]. Panel Fast Today Z00.00 - Encounter for general adult medical examination without abnormal findings UA CC w/rflx Micro + Cult Today Z00.00 - Encounter for general adult medical examination without abnormal findings Heavy Metals Screen Blood Today R47.89 - Other speech disturbances Medications: New betamethasone dipropionate 0.05% 1 appl topical DAILY PRN 45 grams 2RF skin irritation Coding Level of Care Code Est Pt Prev Care 40-64y(37493) Diagnoses Physical exam Z00.00 Word finding problem R47.89 Shoulder pain M25.519
[2023-06-02 09:04] VITALS: BP 120/82; PULSE 89; O2SAT 98
== END 2023-06-02 09:46 | disposition home or self-care (01) ==
PROVIDERS: PCP Nurse Practitioner Family; Visit Provider Nurse Practitioner Family
DX: Z00.00 Encounter for general adult medical examination without abnormal findings (principal); R47.89 Other speech disturbances; M25.519 Pain in unspecified shoulder
CPT/HCPCS: 99396

== ENCOUNTER 2023-06-02 09:45 | Outpatient (REF) | payer OTHER, SELFPAY ==
--- NOTE | ~2023-06-02 | XR_ITS ---
EXAMINATION: XR SHOULDER, RIGHT CLINICAL INFORMATION: Pain and unspecified COMPARISON: None available. TECHNIQUE: AP external rotation, Grashey, scapular Y, and axillary views of the right shoulder. FINDINGS: Glenohumeral alignment is preserved. Mild degenerative changes with hypertrophic change in the acromioclavicular joint. No abnormal soft tissue calcifications identified adjacent to the head. XR/XR shoulder RT min 2V IMPRESSION: Mild degenerative changes in the acromioclavicular joint.
== END 2023-06-02 09:46 | disposition home or self-care (01) ==
LOC: HO.HMGCX 09:45
PROVIDERS: PCP Nurse Practitioner Family; Visit Provider Nurse Practitioner Family
DX: M25.511 Pain in right shoulder (principal)
CPT/HCPCS: 73030

== ENCOUNTER 2023-11-29 08:38 | Outpatient (REF) | payer OTHER, SELFPAY ==
[2023-11-29 10:13] LABS: MANUAL DIFF FLAG NO
[2023-11-29 10:30] LABS: Appearance Urine Clear; Color Urine Yellow; Glucose Urine UA Negative (Negative); Leukocyte Esterase Urine Negative (Negative); Nitrite Urine Negative (Negative); PH 6.5 (5.0-9.0); Urine Blood Negative (Negative); Urine Ketones Negative (Negative); Urine Protein Negative (Neg-Trace)
[2023-11-29 10:43] LABS: Basophils Percent Auto 0.3 % (0-2); Eosinophils Absolute Auto 0.2 X10*3/uL (0.0-0.4); Hematocrit 48.4 % (42.0-52.0); Imm Gran Abs Auto 0.03 X10*3/uL (0.00-0.03); Imm Gran Pct Auto 0.4 % (0.0-0.4); Lymphocytes Absolute Auto 2.2 X10*3/uL (1.2-4.9); Lymphocytes Percent Auto 31.1 % (20-40); Mean Corpuscular HGB Conc 35.1 g/dl (31.0-36.0); Mean Corpuscular Hemoglobin 31.1 pg (27.0-33.0); Mean Corpuscular Volume 88.6 fL (80.0-98.0); Mean Platelet Volume 10.3 fL (9.4-12.4); Monocytes Absolute Auto 0.6 X10*3/uL (0.1-1.2); Monocytes Percent Auto 9.1 % (2-11); Neutrophils Percent Auto 56.1 % (45-73); Platelet Count 282 X10*3/uL (160-400); Red Blood Count 5.46 X10*6/uL (4.60-5.80); Red Cell Distribution Width 11.9 % (11.0-16.0)
[2023-11-29 11:14] LABS: Alanine Aminotransferase 27 U/L (0-40); Albumin Level 4.7 g/dL (3.5-5.0); Alkaline Phosphatase 57 U/L (39-117); Anion Gap 14 (12-20); Aspartate Amino Transferase 24 U/L (5-37); Bilirubin Total 1.1 mg/dL (0.0-1.0); Blood Urea Nitrogen 14 mg/dL (9-16); Calcium 10.2 mg/dL (8.4-10.2); Carbon Dioxide 25 mmol/L (22-29); Chloride 104 mmol/L (96-108); Cholesterol 218 mg/dL (<200); Estimated Glomerular Filt Rate > 60; Glucose Fasting 90 mg/dL (60-99); HDL Cholesterol 50 mg/dL (>40); LDL Cholesterol Calculated 135 mg/dL (<100); Potassium 4.2 mmol/L (3.3-5.1); Sodium 139 mmol/L (135-145); TSH reflex Free T4 1.41 uIU/mL (0.32-4.0); Triglycerides 169 mg/dL (<150)
[2023-12-01 16:53] LABS: Arsenic, Blood <3 mcg/L (<23); Lead, Blood <1.0 mcg/dL (<3.5); Mercury, Blood <4 mcg/L (<=10)
== END 2023-11-29 08:39 | disposition home or self-care (01) ==
LOC: HO.HMGCLDS 08:38
PROVIDERS: PCP Nurse Practitioner Family; Visit Provider Nurse Practitioner Family
DX: Z00.00 Encounter for general adult medical examination without abnormal findings (principal); R47.89 Other speech disturbances
CPT/HCPCS: 36415; 80053; 80061; 81003; 82175; 83655; 83825; 84443; 85025

== ENCOUNTER 2023-12-02 08:30 | Outpatient (AMB) | payer OTHER, SELFPAY ==
--- NOTE | 2023-12-02 08:38 | A.OFFPC_ITS ---
Vital Signs 12/02/23 08:40 Weight 165 lb BP 110/74 Blood Pressure Location Lt brachial Position Sitting Pulse 56 Pulse Source Pulse Oximeter Pulse Oximetry (%) 97 Oxygen Delivery Method Room Air Intake Visit Reasons: 6 Month F/U Intake Note: Patient here to review labs. Allergies No Known Allergies [No Known Allergies*] Allergy (Verified 12/02/23 08:41) Medication List - Last Reconciled 12/02/23 by MISBAH Stevenson atorvastatin 10 mg PO BEDTIME betamethasone dipropionate 0.05% 1 appl topical DAILY PRN Tobacco use date assessed: 12/02/23 Dental Screening Dental Screen Date: 12/02/23 Did you have a dental visit in the last 12 months?: Yes Did you have a dental problem in the last 6 months where you did not have access to dental care?: No Was dental information given to patient?: Patient has dentist HPI 6 Month F/U HPI Details Dyslipidemia: Pt's last lipids were elevated. He was previously on atorvastatin but no longer takes this. Will restart atorvastatin 10mg. Will repeat labs in 2 months. Educated pt on proper diet and portion sizes. Denies chest pain, shortness of breath, and dizziness. [facility] Medical History Dyslipidemia GERD (gastroesophageal reflux disease) History of narcotic addiction Internal hemorrhoids Right carpal tunnel syndrome Surgical History Hx of colonoscopy History of esophagogastroduodenoscopy (EGD) Family History Mother Colon cancer Social History Housing: Condominium Patient Tobacco Use Status: Former Tobacco user Second Hand Smoke Exposure: No Current occupational status: employed Cognitive needs: No Hearing needs: No Vision needs: Yes Questionnaire Thrive Questionnaire Date Thrive assessed: 08/25/21 GIACOMO-7 AMB Questionnaire GIACOMO-7 Date GIACOMO - 7 assessed: 06/02/23 Source: Developed by Drs. Johan Nowak, Kayla Martines, Giovany Simmons and colleagues, with an educational derrek from [employer]. Review of Systems Const Reports as per HPI Physical exam (Primary Care) Vital Signs: Last Vital Signs Pulse 56 12/02/23 08:40 BP 110/74 12/02/23 08:40 Pulse Ox 97 12/02/23 08:40 Oxygen Delivery Method Room Air 12/02/23 08:40 Tobacco/Smoking Status: Tobacco use Status Tobacco use date assessed 12/02/23 12/02/23 08:42 Patient Tobacco Use Status Former Tobacco user 12/02/23 08:38 Thrive Assessment: Date of Thrive Assessment Date Thrive assessed 08/25/21 12/02/23 08:38 Const General: cooperative Orientation/consciousness: patient oriented x3 Resp Effort & Inspection: normal respiratory effort Auscultation: clear to auscultation bilaterally Cardio Rate: regular rate Rhythm: regular rhythm Heart sounds: S1 normal heart sound present and S2 normal heart sound present Neuro General: patient oriented x3 Extrem Right lower extremity: no edema Left lower extremity: no edema Psych Appearance: grossly normal Mental Status: mental status grossly normal Speech and movement: Normal speech and movement present Affect: normal affect Attitude: cooperative Thought process: Normal thought process present Thought content: Normal thought content present Insight: Good insight present (Psych) Judgement: Good judgement present (Psych) Assessment and Plan Assessment & Plan (1) Dyslipidemia: Code(s): E78.5 - Hyperlipidemia, unspecified Plan: restarting atorvastatin, repeat labs ordered, educated on proper diet and portion sizes Plan The patient agreed to the use of a nuclear medicine medical director for this encounter. Scribed for MISBAH Martinez by Arlette Tomas nuclear medicine medical director, on 12/02/2023 at 08:45 EST. Orders: Orders Lipid Panel 2 Months E78.5 - Hyperlipidemia, unspecified Comprehensive [place]. Panel Fast 2 Months E78.5 - Hyperlipidemia, unspecified Medications: New atorvastatin 10 mg PO BEDTIME 90 tabs 1RF Coding Level of Care Code Est Pt Level 3 (22044) Diagnoses Dyslipidemia E78.5
[2023-12-02 08:40] VITALS: BP 110/74; PULSE 56; O2SAT 97
== END 2023-12-02 09:01 | disposition home or self-care (01) ==
PROVIDERS: PCP Nurse Practitioner Family; Visit Provider Nurse Practitioner Family
DX: E78.5 Hyperlipidemia, unspecified (principal)
CPT/HCPCS: 99214

== ENCOUNTER 2024-06-06 09:53 | Outpatient (AMB) | payer OTHER, SELFPAY ==
[2024-06-06 09:54] VITALS: BP 112/70; PULSE 72; O2SAT 98; BMI 26.3
--- NOTE | 2024-06-06 09:54 | MHC.PC.OV ---
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 Will order labs. Pt c/o increased fatigue. He does ? a hx of sleep apnea. Will refer for sleep study. Will also check a T level. 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 46042 - PHQ-9 Billing: Patient declined-do not bill Source: Developed by Drs. Johan Nowak, Kayla Martines, Giovany Simmons and colleagues, with an educational derrek from [employer]. Thrive Questionnaire Date Thrive assessed: 06/06/24 I am a: Patient What is your living situation today?: I have a steady place to live Within the past 12 months, did the food you bought not last and you didn't have the money to get more?: Never true Within the past 12 months, did you worry whether your food would run out before you got money to buy more?: Never true Do you have trouble paying for medicines?: No Do you have trouble getting transportation to medical appointments?: No Do you have trouble paying your heating and electricity bill?: No Do you have trouble taking care of your child, family member or friend?: No Do you have trouble with day-to-day activities such as bathing, preparing meals, shopping, managing finances, etc.?: No Are you currently unemployed and looking for a job?: No Are you interested in more education?: No Please select the resources that you would like help with: None Currently or been in a relationship where the following occur: No concerns reported THRIVE Score: 0 AUDIT C Alcohol Use Questionnaire (AUDIT-C) 1. How often do you have a drink containing alcohol?: Monthly or less 2. How many drinks containing alcohol do you have on a typical day when you are drinking?: 1 or 2 3. How often do you have six or more drinks on one occasion?: Never Total Score: 1 Score Reviewed/Action Taken: Yes GIACOMO-7 AMB Questionnaire GIACOMO-7 Date GIACOMO - 7 assessed: 06/06/24 Feeling nervous, anxious, or on edge: 0 = Not at all Not being able to stop or control worryin = Not at all Worrying too much about different things: 0 = Not at all Trouble relaxin = Not at all Being so restless that it is hard to sit still: 0 = Not at all Becoming easily annoyed or irritable: 0 = Not at all Feeling afraid as if something awful might happen: 0 = Not at all Total GIACOMO-7 score (0-4 normal; 5-9 mild; 10-14 moderate; 15-21 severe): 0 Source: Developed by Drs. Johan Nowak, Kayla Martines, Giovany Simmons and colleagues, with an educational derrek from [employer]. GIACOMO-7 Assessment Billing GIACOMO-7 Assessment Tool: GIACOMO-7 Assessment 83187 Review of Systems Const Denies chills and Denies fever(s) Eyes Denies blurry vision ENT Denies vertigo, Denies dizziness and Denies sore throat Card Denies chest pain at rest, Denies chest pain with activity, Denies diaphoresis, Denies dyspnea and Denies dyspnea on exertion Resp Denies cough, Denies dyspnea, Denies dyspnea on exertion and Denies wheezing GI Denies abdominal pain, Denies melena, Denies hematochezia, Denies constipation, Denies diarrhea and Denies loose stools Denies hematuria Musc Denies numbness and Denies tingling Skin/Breast Denies lesions Neuro Denies vertigo, Denies dizziness, Denies numbness and Denies tingling Psych Denies anxiety, Denies depression, Denies homicidal ideation, Denies suicidal ideation and Denies other (substance abuse) Aller/Immun Denies wheezing Physical exam (Primary Care) Vital Signs: Last Vital Signs Pulse 72 06/06/24 09:54 BP 112/70 06/06/24 09:54 Pulse Ox 98 06/06/24 09:54 BMI result Body Mass Index 26.3 Tobacco/Smoking Status: Tobacco use Status Tobacco use date assessed 12/02/23 06/06/24 09:56 Patient Tobacco Use Status Former Tobacco user 06/06/24 09:56 Thrive Assessment: Date of Thrive Assessment Date Thrive assessed 06/06/24 06/06/24 09:56 Currently or been in a relationship where the following occur: No concerns reported Const General: cooperative Nutritional Appearance: well nourished Orientation/consciousness: patient oriented x3 HENMT Head: Yes normal to inspection, Yes normocephalic and Yes atraumatic Ears: TM's normal bilaterally Eyes General: appearance normal, both eyes and all related structures Alignment and Position: alignment normal and position normal Neck Neck: Yes normal visual inspection, Yes no lymphadenopathy and Yes supple Resp Effort & Inspection: normal respiratory effort Auscultation: clear to auscultation bilaterally Cardio Rate: regular rate Rhythm: regular rhythm Heart sounds: S1 normal heart sound present, S2 normal heart sound present and no murmurs GI Palpation (GI): Soft to palpation and nontender Auscultation: normal bowel sounds Male General Exam: Yes normal external exam Penis: normal penis Scrotum: scrotum normal, testes descended bilaterally and no inguinal hernias Testes: no testicular mass Skin Rashes: no rashes Neuro General: patient oriented x3, moves all extremities, no focal motor deficits and deep tendon reflexes 2+ bilaterally Romberg Test: Negative Psych Appearance: grossly normal Mental Status: mental status grossly normal Speech and movement: Normal speech and movement present Affect: normal affect Attitude: cooperative Thought process: Normal thought process present Thought content: Normal thought content present Insight: Good insight present (Psych) Judgement: Good judgement present (Psych) Coding Level of Care Code Est Pt Prev Care 40-64y(69528) Diagnoses Physical exam Z00.00 Sleep apnea G47.30 Fatigue R53.83 Additional Codes GIACOMO-7 Assessment Billing - GIACOMO-7 Assessment Tool: GIACOMO-7 Assessment 61937 ([id number]) Assessment & Plan Assessment & Plan (1) Physical exam: Code(s): Z00.00 - Encounter for general adult medical examination without abnormal findings Category: Medical Plan: Labs ordered (2) Sleep apnea: Code(s): G47.30 - Sleep apnea, unspecified Category: Medical Plan: Referred for sleep study (3) Fatigue: Code(s): R53.83 - Other fatigue Category: Medical Plan: Referred for sleep study + T level ordered Plan The patient agreed to the use of a certified court/medical interpreter for this encounter. Scribed for SAMREEN Martinez-BC by Arlette Tomas certified court/medical interpreter, on 06/06/2024 at 10:20 EST. Orders: Orders Complete Blood Count Auto Diff Today Z00.00 - Encounter for general adult medical examination without abnormal findings Comprehensive [place]. Panel Fast Today Z00.00 - Encounter for general adult medical examination without abnormal findings TSH reflex Free T4 Today Z00.00 - Encounter for general adult medical examination without abnormal findings Testosterone, Free/Total Today R53.83 - Other fatigue UA CC w/rflx Micro + Cult Today Z00.00 - Encounter for general adult medical examination without abnormal findings Lipid Panel Today Z00.00 - Encounter for general adult medical examination without abnormal findings Referrals Sleep Medicine Referral G47.30 - Sleep apnea, unspecified
== END 2024-06-06 10:35 | disposition home or self-care (01) ==
PROVIDERS: PCP Nurse Practitioner Family; Visit Provider Nurse Practitioner Family
DX: Z00.00 Encounter for general adult medical examination without abnormal findings (principal); G47.30 Sleep apnea, unspecified; R53.83 Other fatigue

== ENCOUNTER → 2024-06-06 09:53 | Outpatient (BNVA) | payer OTHER, SELFPAY | PROVIDERS: PCP Nurse Practitioner Family; Visit Provider Nurse Practitioner Family | DX: Z00.00 Encounter for general adult medical examination without abnormal findings (principal); G47.30 Sleep apnea, unspecified; R53.83 Other fatigue | CPT/HCPCS: 96127; 99396 ==

== ENCOUNTER 2024-08-21 07:28 | Outpatient (AMB) | payer OTHER, SELFPAY ==
--- NOTE | 2024-08-21 07:31 | A.OFFVIS_ITS ---
Vital Signs 08/21/24 07:32 Height 5 ft 7 in Weight 170 lb BMI 26.6 BP 118/82 Blood Pressure Location Rt brachial Position Sitting Intake Visit Reasons: INP-KALI Intake Note: Patient presents for KALI Allergies No Known Allergies [No Known Allergies*] Allergy (Verified 08/21/24 07:34) Medication List - Last Reconciled 08/21/24 by Candie Huerta MD atorvastatin 10 mg PO BEDTIME betamethasone dipropionate 0.05% 1 appl topical DAILY PRN HPI Comments Details: 44y/o male comes for sleep evaluation . Main complaints-excessive daytime fatigue, sleepiness, witnessed apneas, teeth grinding - started using mouth guard Sleep questionnaire- Difficulty falling asleep-no Difficulty staying asleep-yes Number of arousals-4 Snoring-yes Witnessed apneas-yes Gasping arousals-no Nocturia-yes GERD-no Vivid dreams-yes Acting out dreams -no Abnormal behavior in sleep-no ABnormal movements in sleep-no Morning headaches-yes Excessive daytime sleepiness-yes Daytime naps- no restless legs- no Hallucinations- no sleep paralysis- no Drop attacks- no Sleep study-no Sleep Hygiene- Sleep time-10pm Wake time -6.45 am coffee/stimulant use- 2 cups Phone Electronics use- none Exercise- none Bedroom comfort- yes [facility] Medical History (Updated 08/21/24 @ 07:59 by Candie Huerta MD) Hypersomnia Snoring Internal hemorrhoids Right carpal tunnel syndrome History of narcotic addiction GERD (gastroesophageal reflux disease) Dyslipidemia Surgical History Hx of colonoscopy History of esophagogastroduodenoscopy (EGD) Family History Mother Colon cancer Social History Housing: Condominium Patient Tobacco Use Status: Former Tobacco user Second Hand Smoke Exposure: No Current occupational status: employed 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 Cognitive needs: No Hearing needs: No Vision needs: Yes Physical Exam Vital Signs: Last Vital Signs BP 118/82 08/21/24 07:32 BMI result Body Mass Index 26.6 Const General: cooperative, healthy appearing, comfortable and no acute distress Nutritional Appearance: average body habitus Orientation/consciousness: patient oriented x3 Eyes Pupils: Equal, round and reactive pupils present Neuro General: patient oriented x3, gait normal, tone normal, moves all extremities and no focal motor deficits Cranial nerves: Yes Equal, round and reactive pupils present, Yes Bilaterally intact EOM present, Yes Nystagmus not present, Yes Normal facial strength present, Yes Midline tongue present and Yes Symmetric palate elevation present Cognition (Neuro): normal cognition Gait exam (Neuro): Normal gait present Motor exam (neuro): 5/5 motor strength present throughout and Normal motor muscle tone present throughout Deep tendon reflexes (DTR's): Right triceps reflex intensity grade: 2+, Left triceps reflex intensity grade: 2+, Rt Biceps (C5, C6): 2+, Left biceps reflex intensity grade: 2+, Right brachioradialis reflex intensity grade: 2+, Left brachioradialis reflex intensity grade: 2+, Right patellar reflex intensity grade: 2+ and Left patellar reflex intensity grade: 2+ Coordination: [id number] test normal Assessment & Plan Assessment & Plan (1) Snoring: Code(s): R06.83 - Snoring Category: Medical (2) Hypersomnia: Code(s): G47.10 - Hypersomnia, unspecified Category: Medical Plan I will schedule him for home sleep test to r/o sleep apnea. I will check his Vit D B 12 CMP CBC to r/o reversible causes of hypersomnia. Orders: Orders Vitamin B12 and Folate Today G47.10 - Hypersomnia, unspecified Vitamin D 25-OH (D2 and D3) Today G47.10 - Hypersomnia, unspecified RT home sleep study Today G47.10 - Hypersomnia, unspecified, R06.83 - Snoring Coding Level of Care Code New Pt Level 4 (59325) Diagnoses Snoring R06.83 Hypersomnia G47.10 [place] Sleepiness Scale Questions Sitting and reading: high chance of dozing Watching TV: moderate chance of dozing Sitting inactive in a theater, movie etc.: slight chance of dozing As a passenger in a car for an hour without break: moderate chance of dozing Lying down in the afternoon when circumstances permit: high chance of dozing Sitting and talking to someone: would never doze Sitting quietly after lunch without alcohol: slight chance of dozing In a car, while stopped for a few minutes in the traffic: would never doze ESS < 10: normal, ESS > 12: pathologic: 12
[2024-08-21 07:32] VITALS: BP 118/82; BMI 26.6
== END 2024-08-21 08:04 | disposition home or self-care (01) ==
PROVIDERS: PCP Nurse Practitioner Family; Visit Provider Psychiatry & Neurology Neurology
DX: R06.83 Snoring (principal); G47.10 Hypersomnia, unspecified
CPT/HCPCS: 99204

== ENCOUNTER 2024-08-21 07:28 | Outpatient (REF) | payer OTHER, SELFPAY ==
[2024-08-21 10:01] LABS: Appearance Urine Clear; Color Urine Yellow; Glucose Urine UA Negative (Negative); Leukocyte Esterase Urine Negative (Negative); Nitrite Urine Negative (Negative); Specific Gravity - Urine 1.025 (1.005-1.025); Urine Blood Negative (Negative); Urine Ketones Trace mg/dL (Negative); Urine Protein Negative (Neg-Trace)
[2024-08-21 10:08] LABS: MANUAL DIFF FLAG NO
[2024-08-21 10:13] LABS: Basophils Percent Auto 0.3 % (0-2); Eosinophils Absolute Auto 0.2 X10*3/uL (0.0-0.4); Eosinophils Percent Auto 3.1 % (0-4); Hematocrit 46.9 % (42.0-52.0); Hemoglobin 16.3 g/dl (14.0-18.0); Imm Gran Abs Auto 0.03 X10*3/uL (0.00-0.03); Imm Gran Pct Auto 0.5 % (0.0-0.4); Lymphocytes Absolute Auto 2.1 X10*3/uL (1.2-4.9); Lymphocytes Percent Auto 32.1 % (20-40); Mean Corpuscular HGB Conc 34.8 g/dl (31.0-36.0); Mean Corpuscular Hemoglobin 30.8 pg (27.0-33.0); Mean Corpuscular Volume 88.5 fL (80.0-98.0); Mean Platelet Volume 10.5 fL (9.4-12.4); Monocytes Absolute Auto 0.5 X10*3/uL (0.1-1.2); Monocytes Percent Auto 7.8 % (2-11); Neutrophils Absolute Auto 3.6 x10*3/uL (2.0-8.3); Neutrophils Percent Auto 56.2 % (45-73); Platelet Count 245 X10*3/uL (160-400); Red Cell Distribution Width 11.9 % (11.0-16.0); White Blood Count 6.4 X10*3/uL (4.8-10.8)
[2024-08-21 11:09] LABS: Alanine Aminotransferase 45 U/L (0-40); Albumin Level 4.8 g/dL (3.5-5.0); Alkaline Phosphatase 53 U/L (39-117); Anion Gap 15 (12-20); Aspartate Amino Transferase 33 U/L (5-37); Bilirubin Total 1.6 mg/dL (0.0-1.0); Blood Urea Nitrogen 17 mg/dL (9-16); Calcium 9.4 mg/dL (8.4-10.2); Carbon Dioxide 24 mmol/L (22-29); Chloride 106 mmol/L (96-108); Cholesterol 164 mg/dL (<200); Estimated Glomerular Filt Rate > 60; Glucose Fasting 83 mg/dL (60-99); HDL Cholesterol 52 mg/dL (>40); LDL Cholesterol Calculated 86 mg/dL (<100); Potassium 4.5 mmol/L (3.3-5.1); Sodium 140 mmol/L (135-145); TSH reflex Free T4 0.83 uIU/mL (0.32-4.0); Total Protein 8.1 g/dL (6.5-8.0); Triglycerides 134 mg/dL (<150)
[2024-08-21 11:25] LABS: Folate 12.4 ng/mL (> or = 4.0); Vitamin B12 439 pg/mL (200-900)
[2024-08-24 15:54] LABS: Vitamin D 25-OH, D2 <4 ng/mL; Vitamin D 25-OH, D3 31 ng/mL; Vitamin D 25-OH, Total 31 ng/mL (30-100)
[2024-08-25 20:59] LABS: Testosterone, Total 587 ng/dL (250-1100)
== END 2024-08-21 07:29 | disposition home or self-care (01) ==
LOC: HO.HMGCLDS 07:28
PROVIDERS: PCP Nurse Practitioner Family; Visit Provider Psychiatry & Neurology Neurology
DX: Z00.00 Encounter for general adult medical examination without abnormal findings (principal); G47.10 Hypersomnia, unspecified; E78.5 Hyperlipidemia, unspecified; R53.83 Other fatigue
CPT/HCPCS: 36415; 80053; 80061; 81003; 82306; 82607; 82746; 84402; 84403; 84443; 85025; 99202

== ENCOUNTER 2024-09-01 09:52 | Outpatient (REF) | payer OTHER, SELFPAY ==
--- NOTE | ~2024-09-01 | US_ITS ---
CLINICAL HISTORY: R74.8 - Abnormal levels of other serum enzymes US abdomen complete Comparison: None Findings: The visualized pancreas is normal. The aorta and inferior vena cava are normal caliber. The appearance of the liver suggests fatty infiltration without focal lesion. There is no intrahepatic bile duct dilatation. The common duct is 3.8 mm in diameter. The gallbladder is normal. There is no sonographic Castañeda sign. The main portal vein is antegrade. The right kidney is 11.4 cm in length. The left kidney is 10.3 cm in length. The spleen is normal. No ascites. IMPRESSION: 1. Hepatic steatosis. This document has been electronically signed by: Edgar Sesay MD on 09/02/2024 09:06:09
== END 2024-09-01 09:53 | disposition home or self-care (01) ==
LOC: HO.HMGCX 09:52
PROVIDERS: PCP Nurse Practitioner Family; Visit Provider Nurse Practitioner Family
DX: R74.8 Abnormal levels of other serum enzymes (principal)
CPT/HCPCS: 76700

== ENCOUNTER → 2024-09-01 09:54 | Outpatient (BNV) | payer OTHER, SELFPAY | PROVIDERS: PCP Nurse Practitioner Family; Visit Provider Specialist | DX: K76.0 Fatty (change of) liver, not elsewhere classified (principal) | CPT/HCPCS: 76700 ==

== ENCOUNTER → 2024-10-10 15:49 | Outpatient (REF) | payer OTHER, SELFPAY | LOC: HO.SL 15:49 | PROVIDERS: PCP Nurse Practitioner Family; Visit Provider Psychiatry & Neurology Neurology | DX: R06.83 Snoring (principal); G47.10 Hypersomnia, unspecified | CPT/HCPCS: 95806 ==

== ENCOUNTER → 2024-10-10 16:00 | Outpatient (BNV) | payer OTHER, SELFPAY | PROVIDERS: PCP Nurse Practitioner Family; Visit Provider Psychiatry & Neurology Neurology | DX: G47.33 Obstructive sleep apnea (adult) (pediatric) (principal) | CPT/HCPCS: 95806 ==

== ENCOUNTER 2025-06-19 09:50 | Outpatient (AMB) | payer OTHER, SELFPAY ==
--- NOTE | 2025-06-19 09:53 | A.OFFPC_ITS ---
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 Accompanied by: Self / Same As Patient Allergies No Known Allergies (No Known Allergies*) Allergy (Verified 06/19/25 09:57) Medication List - Last Reconciled 06/19/25 by MISBAH Stevenson betamethasone dipropionate 0.05% 1 appl topical DAILY PRN Tobacco use date assessed: 06/19/25 Dental Screening Dental Screen Date: 06/19/25 Did you have a dental visit in the last 12 months?: Yes Did you have a dental problem in the last 6 months where you did not have access to dental care?: No Was dental information given to patient?: Patient has dentist HPI PE HPI Details History of Present Illness The patient is a 45-year-old individual presenting for a physical exam. The patient reports not experiencing chest pain, shortness of breath, abdominal pain, blood in stool, constipation, and diarrhea. The patient has no suicidal or homicidal ideation. The patient is starting to use a CPAP machine as recommended. Regarding preventative care, the patient is due for another colon screening in 2026. Health Maintenance The patient is due for another colon screening in 2026. A PSA will be added to the lab orders for prostate cancer screening, as the patient is 45. Social History - No social history was discussed during the visit. Review of Systems - Cardiovascular: Reports chest pain. - Respiratory: Reports shortness of maulik th. - Gastrointestinal: Reports abdominal pa in, blood in stool, constipation, and diarrhea. - Psychiatric: Denies suicidal or homici martina ideation. Physical Exam General: Cooperative, healthy appearing, comfortable, no acute distress and well developed Orientation: Patient oriented x3 Limitations: No limitations Head: Normal to inspection Ears: Hearing grossly normal bilaterally Nose: Normal external nose present Face and sinus: Normal facial exam Eyes: Appearance normal, both eyes and all related structures Neck: Normal visual inspection and Yes full ROM Respiratory: Normal respiratory effort and able to speak in complete sentences. Clear to auscultation bilaterally Cardiovascular: Regular rate and rhythm. Normal S1 and S2 GI: Abdominal pain noted. Normal to inspection. Soft to palpation and nontender : Testicles without masses/lesions and no hernias appreciated Skin: No rashes or lesions noted Neuro: Patient oriented x3 Extremities: Normal to inspection Results - No diagnostic results were discussed. Plan 1. Annual Physical Exam Lab orders were entered for further evaluation. 2. Sleep Apnea The patient is starting to use a CPAP machine, and it was recommended that the patient use it on a daily basis. Discussion Notes I recommended that the patient start using a CPAP machine on a daily basis. I informed the patient that lab orders have been entered. I will also add a PSA test for screening given the patient's age. We noted that the next colon screening is due in 2026. I advised the patient to contact me with any further questions or concerns. Patient Instructions - Please use your CPAP machine every day . - Lab work has been ordered for you. - Your next colon screening is due in . - Please contact the office if you have any questions or concerns. 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 1. Little interest or pleasure in doing things: not at all 2. Feeling down, depressed, or hopeless: not at all 3. Trouble falling or staying asleep, or sleeping too much: not at all 4. Feeling tired or having little energy: not at all 5. Poor appetite or overeating: not at all 6. Feeling bad about yourself - or that you are a failure or have let yourself or your family down: not at all 7. Trouble concentrating on things, such as reading the newspaper or watching television: not at all 8. Moving or speaking so slowly that other people could have noticed. Or the opposite - being so fidgety or restless that you have been moving around a lot more than usual: not at all 9. Thoughts that you would be better off or of hurting yourself in some way: not at all Total score: 0 Depression Screening Interpretation: Negative Depression Screening Done: Yes 62841 - PHQ-9 Billing: Yes Source: Developed by Drs. Johan Nowak, Kayla Martines, Giovany Simmons and colleagues, with an educational derrek from [employer]. Thrive Questionnaire Date Thrive assessed: 06/13/25 I am a: Patient What is your living situation today?: I have a steady place to live Within the past 12 months, did the food you bought not last and you didn't have the money to get more?: Never true Within the past 12 months, did you worry whether your food would run out before you got money to buy more?: Never true Do you have trouble paying for medicines?: No Do you have trouble getting transportation to medical appointments?: No Do you have trouble paying your heating and electricity bill?: No Do you have trouble taking care of your child, family member or friend?: No Do you have trouble with day-to-day activities such as bathing, preparing meals, shopping, managing finances, etc.?: No Are you currently unemployed and looking for a job?: No Are you interested in more education?: No Please select the resources that you would like help with: None Currently or been in a relationship where the following occur: No concerns reported THRIVE Score: 0 AUDIT C Alcohol Use Questionnaire (AUDIT-C) 1. How often do you have a drink containing alcohol?: 2-4 times a month 2. How many drinks containing alcohol do you have on a typical day when you are drinking?: 1 or 2 3. How often do you have six or more drinks on one occasion?: Never Total Score: 2 Score Reviewed/Action Taken: Yes GIACOMO-7 AMB Questionnaire GIACOMO-7 Date GIACOMO - 7 assessed: 06/19/25 Feeling nervous, anxious, or on edge: 0 = Not at all Not being able to stop or control worryin = Not at all Worrying too much about different things: 0 = Not at all Trouble relaxin = Not at all Being so restless that it is hard to sit still: 0 = Not at all Becoming easily annoyed or irritable: 0 = Not at all Feeling afraid as if something awful might happen: 0 = Not at all Total GIACOMO-7 score (0-4 normal; 5-9 mild; 10-14 moderate; 15-21 severe): 0 Source: Developed by Drs. Johan Nowak, Kayla Martines, Giovany Simmons and colleagues, with an educational derrek from [employer]. GIACOMO-7 Assessment Billing GIACOMO-7 Assessment Tool: GIACOMO-7 Assessment 10748 Physical exam (Primary Care) Vital Signs: Last Vital Signs Pulse 70 06/19/25 09:54 Resp 16 06/19/25 09:54 BP 118/80 06/19/25 09:54 Pulse Ox 99 06/19/25 09:54 Oxygen Delivery Method Room Air 06/19/25 09:54 BMI result Body Mass Index 24.9 Tobacco/Smoking Status: Tobacco use Status Tobacco use date assessed 06/19/25 06/19/25 09:57 Patient Tobacco Use Status Former Tobacco user 06/19/25 09:53 PHQ-9: PHQ-9 Score PHQ-9: Total score 0 06/19/25 09:57 Depression Screening Interpretation: Negative Thrive Assessment: Date of Thrive Assessment Date Thrive assessed 06/13/25 06/19/25 09:53 Currently or been in a relationship where the following occur: No concerns reported Coding Level of Care Code Est Pt Prev Care 40-64y(56534) Diagnoses Physical exam Z00.00 Screening for prostate cancer Z12.5 Fatty liver K76.0 Additional Codes GIACOMO-7 Assessment Billing - GIACOMO-7 Assessment Tool: GIACOMO-7 Assessment 81557 ([id number]) PHQ-9 - 59375 - PHQ-9 Billing: Yes ([id number]) Assessment & Plan Assessment & Plan (1) Physical exam: Code(s): Z00.00 - Encounter for general adult medical examination without abnormal findings Category: Medical (2) Screening for prostate cancer: Code(s): Z12.5 - Encounter for screening for malignant neoplasm of prostate Category: Medical (3) Fatty liver: Code(s): K76.0 - Fatty (change of) liver, not elsewhere classified Category: Medical Plan . Orders: Orders Complete Blood Count Auto Diff Today Z00.00 - Encounter for general adult medical examination without abnormal findings TSH reflex Free T4 Today Z00.00 - Encounter for general adult medical examination without abnormal findings UA CC w/rflx Micro + Cult Today Z00.00 - Encounter for general adult medical examination without abnormal findings Lipid Panel Today Z00.00 - Encounter for general adult medical examination without abnormal findings Comprehensive Marcella. Panel Fast Today Z00.00 - Encounter for general adult medical examination without abnormal findings Prostate Specific Antigen Scr Today Z12.5 - Encounter for screening for malignant neoplasm of prostate
[2025-06-19 09:54] VITALS: BP 118/80; PULSE 70; RESP 16; O2SAT 99; BMI 24.9
== END 2025-06-19 10:33 | disposition home or self-care (01) ==
LOC: HO.HMCC 09:51
PROVIDERS: PCP Nurse Practitioner Family; Visit Provider Nurse Practitioner Family
DX: Z00.00 Encounter for general adult medical examination without abnormal findings (principal); Z12.5 Encounter for screening for malignant neoplasm of prostate; K76.0 Fatty (change of) liver, not elsewhere classified

== ENCOUNTER → 2025-06-19 09:50 | Outpatient (BNVA) | payer OTHER, SELFPAY | PROVIDERS: PCP Nurse Practitioner Family; Visit Provider Nurse Practitioner Family | DX: Z00.00 Encounter for general adult medical examination without abnormal findings (principal); G47.30 Sleep apnea, unspecified; K76.0 Fatty (change of) liver, not elsewhere classified; Z99.89 Dependence on other enabling machines and devices | CPT/HCPCS: 96127; 99396 ==